=== PATIENT | male | born 1990 | race Caucasian/White ===

== ENCOUNTER 2020-01-28 10:20 | Outpatient (REF) | payer OTHER, SELFPAY | END 2020-01-28 10:21 | disposition home or self-care (01) | LOC: HO.LAB 10:20 | PROVIDERS: PCP Internal Medicine; Visit Provider Internal Medicine | DX: Z20.828 Contact with and (suspected) exposure to other viral communicable diseases (principal) | CPT/HCPCS: U0003 ==

== ENCOUNTER 2020-04-04 15:54 | Outpatient (REF) | payer OTHER, SELFPAY | END 2020-04-04 15:55 | disposition home or self-care (01) | LOC: HO.LAB 15:54 | PROVIDERS: Visit Provider Internal Medicine | DX: Z20.822 Contact with and (suspected) exposure to COVID-19 (principal) | CPT/HCPCS: 36415; C9803; U0003 ==

== ENCOUNTER 2020-05-20 14:59 | Outpatient (REF) | payer OTHER, SELFPAY | END 2020-05-20 15:00 | disposition home or self-care (01) | LOC: HO.LAB 14:59 | PROVIDERS: PCP Internal Medicine; Visit Provider Internal Medicine | DX: Z20.822 Contact with and (suspected) exposure to COVID-19 (principal) | CPT/HCPCS: 36415; C9803; U0003; U0005 ==

== ENCOUNTER 2021-02-13 22:23 | Emergency (ER) | payer BC, SELFPAY ==
--- NOTE | ~2021-02-13 | XR_ITS ---
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 Rule out foreign body. COMPARISON: None TECHNIQUE: PA, lateral, and oblique views of the right hand. FINDINGS: There is soft tissue thickening around the third and fourth digits with at least 2 radiopaque foreign bodies adjacent to the medial surface of the middle phalanx of the third digit. No acute fractures or malalignment. The carpal rows and the scapholunate interval are preserved. XR/XR hand RT 2V IMPRESSION: Radiopaque foreign bodies adjacent to the middle phalanx of the third digit. No acute fractures or malalignment.
[2021-02-13 22:37] VITALS: BP 132/81; PULSE 89; RESP 18; TEMP 37; O2SAT 97; BMI 18.2
--- NOTE | 2021-02-14 01:13 | ED.WOUNDLAC ---
HPI - Wound/Laceration General Chief Complaint: Wound/Laceration Stated Complaint: rt hand laceration Time Seen by Provider: 02/14/21 00:07 Source: patient and family Mode of arrival: ambulatory Limitations: no limitations History of Present Illness HPI narrative: 30 years old male came in for evaluation of her right hand lacerations. Patient was drinking alcohol and drinking marijuana earlier tonight, patient got upset and punch shower door causing breaking of the glasses, patient came in with multiple laceration on the right hand. While in the ED patient started vomiting patient thought probably secondary to drinking alcohol. Patient complained of no abdominal pain. Related Data Allergies Allergy/AdvReac Type Severity Reaction Status Date / Time No Known Allergies Allergy Unverified 12/13/19 16:33 Review of Systems Review of Systems: All other systems are reviewed and are negative Constitutional: Reports as per HPI and Reports no additional constitutional complaints Eyes: Reports as per HPI and Reports no additional eye complaints Reports system reviewed and no additional complaints, except as documented Cardiovascular: Reports as per HPI and Reports no additional cardiovascular complaints Respiratory: Reports as per HPI and Reports no additional respiratory complaints Gastrointestinal: Reports as per HPI and Reports no additional gastrointestinal complaints Genitourinary: Reports no additional female genitourinary complaints Musculoskeletal: Reports no additional musculoskeletal complaints Skin/Breast: Reports system reviewed and no additional complaints, except as docu Psychiatric: Reports no additional psychiatric complaints Endocrine: Reports no additional endocrine complaints Hematologic/Lymphatic: Reports no additional hematologic/lymphatic complaints Allergic/Immunologic: Reports no additional allergic/immunologic complaints Reports system reviewed and no additional complaints, except as documented and Reports Abnormal speech present [facility] Past Medical History Medical History No known health problems Social History Social History Advance Directives: No Advance Directives Information Provided: No Physical Exam Vital Signs: Vital Signs: Last Vital Signs Temp 98.6 F 02/13/21 22:37 Pulse 89 02/13/21 22:37 Resp 18 02/13/21 22:37 BP 132/81 02/13/21 22:37 Pulse Ox 97 02/13/21 22:37 Body Mass Index 18.2 vital signs have been reviewed as appeared to be correct. Blood pressure normal. Heart rate normal. Respiration rate normal. Temperature normal. Oxygen saturation normal. Appearance: Alert. Oriented X3. No acute distress. Head: Normal external exam. Normocephalic. Atraumatic. No Walters signs noted. No raccoon eyes noted Eyes: PERRLA. EOMI. Conjunctiva and sclera normal. Eyelids normal. ENT: TM's Normal. Pharynx normal. Uvula midline. Moist mucous membranes. No trismus noted. No drooling noted. No muffled voice noted. Neck: Normal inspection. Neck supple. FROM. No adenopathy. Thyroid Normal. No meningeal signs. No neck mass noted. CVS: Normal heart rate and rhythm. Heart sound normal. No murmurs noted. Pulses normal throughout. Respiratory: No respiratory distress. Painless inspiration. Breath sounds normal. No wheezes/rales/rhonchi noted. Chest nontender. No accessory muscle usage noted or decreased air movement noted. Abdomen: Soft and nontender. Bowel sounds normal in all 4 quadrants. No distention noted. No organomegaly noted. No visible injury noted. Back: No CVA tenderness. Full range of motion noted. Skin: Skin warm and dry. Normal skin color. Normal skin turgor. No rashes/lesions/lacerations noted. Extremities: Right hand exam: 5 cm laceration on the 3rd finger on the dorsum aspect no active bleeding, neurovascular intact. 4 cm laceration on the 4th finger dorsum aspect, no active bleeding, neurovascular exam is intact. 2 cm laceration on dorsum of the hand, 1 cm laceration at the base of the 5th finger on the dorsum aspect, no active bleeding. Neuro: Oriented X 3. Cranial nerve exam: II-XII are grossly intact No motor deficit. No sensory deficit. Reflexes normal. Course Course Course Narrative: Assessment and plan. 1. Multiple hand right hand laceration please refer to procedure notes. 2. Vomiting improved in the ED after sublingual Zofran, abdominal exam is unremarkable, patient admitted to drinking plenty of alcohol and smoking marijuana and that is usually causing him to vomit. Procedures Laceration Laceration 1: Site: hand ( Third finger) Side (If applicable): right Size (cm): 5 Description: linear Depth: simple, single layer Local Anesthetic: lidocaine 1% Amount of anesthesia used (mL): 1 Pre-repair: wound explored and irrigated extensively Skin layer closed with: nylon Size (cm): 4-0 Number of sutures: 4 Technique: simple, interrupted Laceration 2: Site: hand ( dorsum of the 4th finger) Side (If applicable): left Size (cm): 3 Description: linear Depth: simple, single layer Local Anesthetic: lidocaine 1% Amount of anesthesia used (mL): 1 Skin layer closed with: nylon Size (cm): 4-0 Number of sutures: 3 Technique: simple, interrupted Laceration 3: Site: hand ( dorsum of her right hand) Size (cm): 2 Description: linear Depth: simple, single layer Local Anesthetic: lidocaine 1% Amount of anesthesia used (mL): 1 Pre-repair: wound explored Skin layer closed with: nylon Size (cm): 4-0 Number of sutures: 2 Laceration 4: Site: hand ( dorsum of her right hand at the base of the 5th finger) Size (cm): 2 Description: linear Depth: simple, single layer Local Anesthetic: lidocaine 1% Amount of anesthesia used (mL): 1 Pre-repair: wound explored Skin layer closed with: nylon Size (cm): 4-0 Number of sutures: 1 Discharge Plan Discharge Clinical Impression: Laceration, Vomiting, Acute alcoholic gastritis Patient Disposition: Home, Self-Care Instructions: Head Laceration (ED) Additional Instructions: suture removal in 7-10 days. Referrals: Shan Hartmann MD [Primary Care Provider] - 2 days
[2021-02-14] MEDS: Ondansetron ODT 4 MG TAB.RAPDIS TRANSLINGU (01:20)
[2021-02-14] MEDS: Lidocaine HCl 1 % MPF 5 ML VIAL SUBCUT (01:20)
== END 2021-02-14 01:33 | disposition home or self-care (01) ==
PROVIDERS: Emergency Provider Emergency Medicine; PCP Internal Medicine
DX: S61.411A Laceration without foreign body of right hand, initial encounter (principal); S61.212A Laceration without foreign body of right middle finger without damage to nail, initial encounter; S61.216A Laceration without foreign body of right little finger without damage to nail, initial encounter; K29.20 Alcoholic gastritis without bleeding; W25.XXXA Contact with sharp glass, initial encounter; Y93.9 Activity, unspecified; Y92.002 Bathroom of unspecified non-institutional (private) residence as the place of occurrence of the external cause; Y99.9 Unspecified external cause status
CPT/HCPCS: 12004; 73120; 99283; 99284

== ENCOUNTER 2024-04-17 15:55 | Emergency (ER) | payer BC, OTHER, SELFPAY ==
--- NOTE | 2024-04-17 16:26 | ED.ANIMALBIT ---
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 He states he was wearing his jacket when a customer's dog bit him in the right forearm. He had mild streaking of the skin but no open wounds. Animal control was involved in a dog is up-to-date on his vaccinations. Patient is unaware of his tetanus status. He reports some mild pain at the site of the bite and there is some moderate swelling in the area. Denies any numbness, weakness, tingling. No drainage from the site. complaint: animal bite Onset (ago): hour(s) Animal: dog Description of animal: household pet Mechanism: bite Pain description: burning Severity scale (1-10): 1 Context: unprovoked Associated symptoms: none Related Data Patient tetanus UTD: No Previous Rx's ?Medication ?Instructions ?Recorded amoxicillin 875 mg-potassium 1 tab PO BID #10 tabs 04/17/24 clavulanate 125 mg tablet Allergies Allergy/AdvReac Type Severity Reaction Status Date / Time No Known Allergies Allergy Verified 04/17/24 16:29 Review of Systems Review of Systems: Yes all other systems are reviewed and are negative PMFSH Past Medical History Medical History No known health problems Physical Exam ED Vital Signs: Vital Signs - 24 hr 04/17/24 16:28 Temperature 98.3 F Pulse Rate 69 Respiratory Rate 18 Blood Pressure 138/89 Pulse Oximetry 99 Oxygen Delivery Method Room Air BMI result Body Mass Index 22.8 Appearance: Alert. Oriented X3. No acute distress. HEENT: normal inspection CVS: Normal heart rate and rhythm. Pulses normal. Respiratory: No respiratory distress. Skin: Skin warm and dry. Normal skin color. Normal skin turgor. No rashes. Extremities: Medial aspect of the right forearm with an approximately 4 cm superficial abrasion with associated swelling and tenderness consistent with a hematoma. Compartments of the forearm are soft and compressible. Neurovascularly intact distally. No bleeding or drainage. No induration or erythema. Neuro: Oriented X 3. Grossly normal, nonfocal Medical Decision Making Medical Decision Making MDM Narrative: 33-year-old male presents to the ER for evaluation of a dog bite. Thankfully he was bit through several layers of clothing and the bite is very superficial. No wound repair needed. Area was cleansed with Betadine and hydrogen peroxide. Ice and Rolando wrap were applied. Tdap was given. Will prescribe empiric Augmentin to prevent infection. No need for rabies series as dog is up-to-date. Patient counseled on return precautions and is stable for discharge home Differential Diagnosis Differential Diagnoses: The differential diagnosis associated with the presentation includes Dog bite, dog scratch, cellulitis, hematoma, no evidence of compartment syndrome Tests considered The following testing was considered but not selected: Considered x-ray of the forearm, low suspicion for bony involvement Prescription Management I considered prescription management with: Pain Medication and Antibiotic Critical Care Time Critical Care Time Critical Care Time: No Discharge Plan Discharge Clinical Impression: Dog bite Patient Disposition: Home, Self-Care Instructions: Animal Bite (ED) Additional Instructions: you were given a tetanus shot today ice and wrap the wound to help control swelling and pain Take the prescribed antibiotics as directed, complete the entire course and do not miss any doses If you develop new or worsening symptoms call 911 or come back to the ER for further evaluation. Prescriptions: New amoxicillin-pot clavulanate 875-125 mg tablet 1 tab PO BID Qty: 10 0RF Print Language: Icelandic
[2024-04-17 16:28] VITALS: BP 138/89; PULSE 69; RESP 18; TEMP 36.8; O2SAT 99; BMI 22.8
[2024-04-17] MEDS: Diphth,Pertus(ACell),Tet Adult 0.5 ML SYRINGE IM (17:15)
[2024-04-17 17:40] VITALS: BP 138/89; PULSE 69; RESP 18; TEMP 36.8; O2SAT 99
--- OUTSIDE RECORDS SUMMARY | 2024-04-17 18:02 | XMS_ITS | Encounter Summary ---
Author Organization [facility] Address [address] [place] [id number] Phone Care Team Providers Care Cargo Checker Name Role Phone Doc Huertas MD Primary Care Provider [phone] Encounter Details Date Type Department Care Team (Late st Contact Info) Description 09/23/2011 Documentation EM Family Medicine [address] [place] [address] Family Medicine, Physician [address] [place], [place] [phone] Social History Tobacco Use Types Packs/Day Years Used Date Smoking Tobacco: Never Assessed Sex and Gender Information Value Date Recorded Sex Assigned at Not on file Legal Sex Male 4:48 PM EDT Gender Identity Not on file Sexual Orientation Not on file documented as of this encounter Plan of Treatment Not on file documented as of this encounter Visit Diagnoses Not on filedocumented in this encounter Care Teams Cargo Checker Relationship Specialty Start Date End Date Doc Huertas MD [address] [place] [address] [place] [address] PCP - General 11/05/16 06/09/22 documented as of this encounter
--- OUTSIDE RECORDS SUMMARY | 2024-04-17 18:02 | XMS_ITS | Clinical Summary ---
Author Organization [facility] Address [address] [place] [phone] Phone Care Team Providers Care Transaction Manager Name Role Phone Unavailable Primary Care Provider Unavailabl e Immunizations Name Administration Dates Next Due DTP 07/25/1997, 5,02/03/1993, 993,1992 Hep B, ped/adol 10/31/2012,1992,1992 Hib (PRP-T) 09/24/1993, 3,1992, 993 IPV 07/25/1997, 5,03/27/1993, 993,1992 MMR 09/18/1996,09/08/1993 Meningococcal Conj (Menactra) MCV4P 07/21/2007 Tdap 11/23/2005 Family History Relation Name Status Comments Brother 1 Alive Brother: Alive and well, Alive and well Brother 2 Alive Brother: Alive and well, Alive and well Other No family histo ry of ADD/ADHD, No family history of Deafness, No family history of Developmental dislocation of hip, No family history of Thrombophilia, No family history of CVA (Stroke), No family history of Migraines, No family history of Obesity, Family history of Diabetes mellitus, No family history of Asthma, No family history of Seizure disorder, Family history of Strabismus/amblyopia, Family history of Elevated cholesterol, No family history of Sudden /IA under age 55, Family history of Hyperlipidemia, No family history of Cancer Social History Tobacco Use Types Packs/Day Years Used Date Smoking Tobacco: Never Assessed Sex and Gender Information Value Date Recorded Sex Assigned at Not on file Legal Sex Male 4:48 PM EDT Gender Identity Not on file Sexual Orientation Not on file Last Filed Vital Signs Vital Sign Reading Time Taken Comments Blood Pressure 102/70 08/31/2012 12:00 AM EDT Pulse - - Temperature 36.9 ??C (98.4 ??F) 10/31/2012 12:00 AM E DT Respiratory Rate - - Oxygen Saturation - - Inhaled Oxygen Concentration - - Weight 55.3 kg (122 lb) 10/31/2012 12:00 AM EDT Height 172.7 cm (5' 8 ) 10/31/2012 12:00 AM EDT Body Mass Index 18.55 10/31/2012 12:00 AM EDT Plan of Treatment Health Maintenance Due Date Last Done Comments Varicella Vaccines (1 of 2 - 13+ 2-dose series) 2005 Hepatitis B Vaccines (3 of 3 - 3-dose series) 12/26/2012 10/31/2012, 1992, 1992 DTaP,Tdap,and Td Vaccines (7 - Td or Tdap) 11/24/2015 11/23/2005, 07/25/1997, 09/24/1994, Additional history exists Influenza Vaccines (#1) 2023 COVID-19 Vaccine ( season) 2023 HIB Vaccines Completed 09/24/1993, 01/28, 1992, Additional history exists MMR Vaccines Completed 09/18/1996, 09/08/1993 IPV Vaccines Completed 07/25/1997, 08/28, 03/27/1993, Additional history exists Meningococcal Vaccine Aged Out 07/21/2007 No lázaro carlito eligible based on patient's age to complete this topic HPV Vaccines Aged Out No longer eligi ble based on patient's age to complete this topic Hepatitis A Vaccines Aged Out No long er eligible based on patient's age to complete this topic Men B Vaccine Aged Out No longer elig ible based on patient's age to complete this topic Pneumococcal Vaccine Aged Out No long er eligible based on patient's age to complete this topic
--- OUTSIDE RECORDS SUMMARY | 2024-04-17 18:02 | XMS_ITS | Encounter Summary ---
Author Organization [facility] Address [address] [place] [phone] Phone Care Team Providers Care Lead Pastor Name Role Phone Doc Huertas MD Primary Care Provider [phone] Encounter Details Date Type Department Care Team (Late st Contact Info) Description 09/22/2011 Documentation EM Family Medicine [address] [place] [address] Family Medicine, Physician [address] [place], [place] [phone] Social History Tobacco Use Types Packs/Day Years [...] on filedocumented in this encounter Care Teams Lead Pastor Relationship Specialty Start Date End Date Doc Huertas MD [address] [place] [address] [place] [id number] PCP - General 11/05/16 06/09/22 documented as of this encounter
== END 2024-04-17 17:40 | disposition home or self-care (01) ==
PROVIDERS: Emergency Provider Emergency Medicine Emergency Medical Services; PCP Physician Assistant
DX: S51.851A Open bite of right forearm, initial encounter (principal); W54.0XXA Bitten by dog, initial encounter; Y93.9 Activity, unspecified; Y92.512 Supermarket, store or market as the place of occurrence of the external cause; Y99.0 Civilian activity done for income or pay; Z23 Encounter for immunization
CPT/HCPCS: 90471; 90715; 99282; 99284